=== PATIENT | female | born 1980 | race Caucasian/White ===

== ENCOUNTER 2024-01-16 13:48 | Inpatient (IN) | payer BC ==
[2024-01-16 14:04] VITALS: BMI 21.1
[2024-01-16 16:22] LABS: VENOUS BASE EXCESS -0.6 mmol/L (-2-2); VENOUS O2 SATURATION 22.2 % (70-80); VENOUS PCO2 48.4 mmHg (38-52); VENOUS PH 7.343 (7.310-7.410)
[2024-01-16 16:31] LABS: BASO % 0.1 % (0-2.0); EOS % 0.1 % (0-4.5); HEMATOCRIT 42.3 % (32.4-45.2); HEMOGLOBIN 14.4 GM/dL (10.7-15.3); LYMPH % 12.5 % (8-40); MCH 33.1 pg (25.7-33.7); MCHC 34.1 g/dl (32.0-36.0); MEAN CELL VOLUME 97.1 fl (80-96); MEAN PLT VOLUME 8.5 fl (7.5-11.1); MONO % 4.2 % (3.8-10.2); NEUT % 83.1 % (42.8-82.8); PLATELET COUNT 163 10^3/uL (134-434); RBC 4.36 M/mm3 (3.60-5.2); RDW 14.5 % (11.6-15.6); WHITE BLOOD COUNT 4.8 K/mm3 (4.0-10.0)
[2024-01-16 16:33] LABS: EPI CELLS 13 /uL (0-25.1); HYALINE CASTS 2 /uL (0-3.1); URINE APPEARANCE CLEAR; URINE BACTERIA 102 /uL (0-1359); URINE BILIRUBIN NEGATIVE (NEGATIVE); URINE COLOR YELLOW; URINE GLUCOSE (UA) NEGATIVE (NEGATIVE); URINE KETONE 1+ (NEGATIVE); URINE LEUK ESTERASE NEGATIVE (NEGATIVE); URINE NITRITE NEGATIVE (NEGATIVE); URINE PROTEIN 1+ (NEGATIVE); URINE RBC 15 /uL (0-23.9); URINE WBC 13 /uL (0-25.8)
[2024-01-16 16:42] LABS: CHLORIDE 102 mmol/L (98-107); POTASSIUM 4.3 mmol/L (3.5-5.1); SODIUM 134 mmol/L (136-145)
[2024-01-16 16:44] LABS: ALBUMIN 3.9 g/dl (3.4-5.0); ANION GAP 5 mmol/L (4-13); BLOOD UREA NITROGEN 8.5 mg/dL (7-18); CALCIUM 9.1 mg/dL (8.5-10.1); CO2 28 mmol/L (21-32); GLUCOSE,RANDOM 109 mg/dL (74-106)
[2024-01-16 16:47] LABS: CREATININE 0.7 mg/dL (0.55-1.3); SGOT/AST 36 U/L (15-37); SGPT/ALT 30 U/L (13-61)
[2024-01-16 16:49] LABS: BILIRUBIN,TOTAL 0.8 mg/dL (0.2-1); TOT PROT 7.5 g/dl (6.4-8.2)
[2024-01-16 16:50] LABS: ALK PHOS 115 U/L (45-117)
[2024-01-16 16:58] LABS: METHADONE, UR NEGATIVE (NEGATIVE); OPIATES, URI NEGATIVE (NEGATIVE); URINE AMPHETAMINES NEGATIVE (NEGATIVE); URINE BARBITURATES NEGATIVE (NEGATIVE)
[2024-01-16 16:59] LABS: COCAINE, UR NEGATIVE (NEGATIVE); PHENCYCLIDINE,URINE NEGATIVE (NEGATIVE); URINE BENZODIAZEPINES NEGATIVE (NEGATIVE)
[2024-01-16] MEDS ORDERED: THIAMINE HCL 200 MG/2 ML VIAL ONE (19:20)
[2024-01-16] MEDS: THIAMINE HCL 200 MG/2 ML VIAL IVPB ONE (19:29)
[2024-01-16] MEDS ORDERED: LORazepam 1 MG TABLET PO PRN (20:58)
[2024-01-16] MEDS ORDERED: LORazepam 1 MG TABLET ONE (22:10)
[2024-01-16] MEDS ORDERED: ENOXAPARIN NA (PORCINE) 40 MG/0.4 ML DISP.SYRIN SQ ONE (22:11)
[2024-01-16] MEDS ORDERED: THIAMINE 100 MG TABLET ONE (22:12)
[2024-01-16] MEDS: ENOXAPARIN NA (PORCINE) 40 MG/0.4 ML DISP.SYRIN SQ SCH (22:32)
[2024-01-16] MEDS: THIAMINE 100 MG TABLET PO SCH (22:33)
[2024-01-16] MEDS: LORazepam 1 MG TABLET PO SCH (22:48)
[2024-01-16] MEDS: FOLIC ACID INJECTION - 1 MG, THIAMINE HCL 100 MG, MULTIVIT INJECTION ADULT 10 ML in SOD... IVPB ONE (23:21)
[2024-01-17 07:16] LABS: BASO % 0.7 % (0-2.0); EOS % 2.3 % (0-4.5); HEMATOCRIT 38.3 % (32.4-45.2); HEMOGLOBIN 12.9 GM/dL (10.7-15.3); LYMPH % 40.9 % (8-40); MCH 33.3 pg (25.7-33.7); MCHC 33.7 g/dl (32.0-36.0); MEAN CELL VOLUME 98.9 fl (80-96); MEAN PLT VOLUME 9.1 fl (7.5-11.1); NEUT % 47.1 % (42.8-82.8); PLATELET COUNT 141 10^3/uL (134-434); RBC 3.87 M/mm3 (3.60-5.2); RDW 14.1 % (11.6-15.6); WHITE BLOOD COUNT 4.2 K/mm3 (4.0-10.0)
[2024-01-17 07:27] LABS: POTASSIUM 3.4 mmol/L (3.5-5.1)
[2024-01-17 07:29] LABS: ALBUMIN 3.4 g/dl (3.4-5.0); BLOOD UREA NITROGEN 6.4 mg/dL (7-18); CALCIUM 8.6 mg/dL (8.5-10.1)
[2024-01-17 07:30] LABS: MAGNESIUM 1.9 mg/dL (1.8-2.4)
[2024-01-17 07:34] LABS: CREATININE 0.6 mg/dL (0.55-1.3); TOT PROT 6.4 g/dl (6.4-8.2)
[2024-01-17 08:57] VITALS: RESP 18
[2024-01-17] MEDS: FOLIC ACID 1 MG TABLET (FP) PO SCH (09:46)
[2024-01-17] MEDS: NICOTINE 14 MG/24 HOURS TOPICAL PATCH TD SCH (09:46)
[2024-01-17 14:47] VITALS: BP 116/86; PULSE 80; TEMP 98.1
[2024-01-18] MEDS ORDERED: LORazepam 1 MG TABLET PO SCH (05:00)
[2024-01-19] MEDS ORDERED: LORazepam 0.5 MG TABLET PO PRN
[2024-01-19] MEDS ORDERED: LORazepam 0.5 MG TABLET PO SCH (05:00)
[2024-01-20] MEDS ORDERED: LORazepam 0.5 MG TABLET PO ONE (05:00)
== END 2024-01-17 16:15 | disposition home or self-care (01) | DRG 101 ==
LOC: JER 13:48 → JERBED 17:55 → OBSVTOIN 20:55 → J4W 22:48
PROVIDERS: ADMIT Internal Medicine; ATTEND Internal Medicine
DX: R56.9 Unspecified convulsions (principal); E03.9 Hypothyroidism, unspecified; K70.30 Alcoholic cirrhosis of liver without ascites; L93.0 Discoid lupus erythematosus; F17.210 Nicotine dependence, cigarettes, uncomplicated
CPT/HCPCS: 0241U-QW; 36415; 70450-TC; 80053; 80307; 81003; 82140; 82803; 82962; 83605; 83735; 84100; 84439; 84443; 84484; 84703; 85025; 87086; 93005; 93010; 99285-25; G0378